=== PATIENT | female | born 1985 | race American Indian/Alaskan Native ===

== ENCOUNTER 2018-09-22 10:19 | Day surgery (SDC) | payer MEDICAID, OTHER ==
--- NOTE | 2018-09-22 08:33 | History and Physical Report ---
History of Present Illness Chief complaint: Right lower quadrant pain Suspected tubo-ovarian abscess Chronic constipation History of present illness: 33yo with chronic pelvic pain and 11cm right adnexal mass identified as an ovarian cyst on pelvic CT and ultrasound. She underwent surgery 11/2017 for laparoscopic salpingectomy and right ovarian cystectomy, however the mass persists and is causing 10/10 pain with constipation. Review of operative report from 11/2017 reveals normal bilateral ovaries, 10-12cm hydrosalpinx partially ruptured in the abdomen with irrigation and obliteration of the posterior cul de sac. Tumor markers for ovarian malignancy were negative. She presents today for diagnostic laparoscopy and right cystectomy vs oopherectomy. Today the patient denies chest pain or shortness of breath. She did complete bowel prep and has been NPO since midnight. 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 Social history: - Obstetrical History : 7 Para: 5 Medications and Allergies Allergies Allergy/AdvReac Type Severity Reaction Status Date / Time Penicillins Allergy Swelling Verified 07/17/15 14:01 Home Medications Medication Instructions Recorded Confirmed Last Taken Type Pnv95/Ferrous Fumarate/FA 1 tab PO DAILY 04/10/15 07/25/15 2 Days Ago History [ Vitamins] ~07/23/15 HYDROcodone/APAP 5-325 [Gibson 1 each PO Q6HR PRN #15 tablet 07/25/15 Unknown Rx 5-325 mg TAB] Active Meds: Active Medications Gentamicin Sulfate (Garamycin) 80 mg IV PREOP JUANITA; Protocol Clindamycin HCl (Cleocin 600 Mg/50 Ml) 600 mg in 50 mls @ 100 mls/hr IV PREOP NR; Protocol Lactated Ringer's (Lactated Ringers) 1,000 mls @ 125 mls/hr IV DIRECT JUANITA - Physical Exam Adnexa: right: mass (15 week size), tenderness Results Result Diagrams: 09/22/18 12:10 09/22/18 12:10 All other labs normal. Assessment and Plan - Patient Problems (1) Right lower quadrant abdominal pain Current Visit: No Status: Acute (2) Adnexal mass Current Visit: No Status: Acute Plan to address problem: 1. CA125 31 (within normal limits) 2. CT of abdomen and ultrasound reveals a 11.5cm right adnexal mass, ovarian in nature 3. IVF 4. Labs, SCDs, Urine test, Neff catheter 5. Antibiotics due to high likelihood of open procedure. 6. Patient to complete bowel prep pre-op at home. 7. Discussion with patient concerning high likelihood of conversion of case to exploratory laparatomy due to size of mass and possible adhesions. Proceed to diagnostic laparoscopy, possible exploratory laparotomy, excision of right adnexal mass (possible oopherectomy vs cystectomy). Risks including but not limited to bleeding, infection, injury to surrounding organs such as bladder, bowel, need for hysterectomy and/or conversion to exploratory laparotomy). All questions answered and informed consent signed. (3) Constipation Current Visit: No Status: Acute (4) PID (pelvic inflammatory disease) Current Visit: Yes Status: Acute Plan to address problem: Patient has completed a 2 week course of doxycycline. She will receive intra-op antibiotics. There is strong suspicious that persistent mass is a persistent tubo-ovarian abscess.
[~2018-09-22 10:19] MED LIST: CLEOCIN 600 MG/50 mL 600 MG/50 ML BAG IV NR; GENTAMICIN IV SCH; LACTATED RINGERS 1,000 ML IV SCH
[2018-09-22 12:30] LABS: Hematocrit 38.1 % (30.3-42.9); Hemoglobin 12.6 gm/dl (10.1-14.3); Mean Corpuscular HGB Conc 33 % (30-34); Mean Corpuscular Volume 78 fl (79-97); Platelet Count 262 K/mm3 (140-440); Red Blood Count 4.86 M/mm3 (3.65-5.03)
[2018-09-22 12:42] LABS: INR 0.92 (0.87-1.13); Partial Thromboplastin Time 25.1 Sec. (24.2-36.6)
[2018-09-22 12:45] LABS: Alanine Aminotransferase 15 units/L (7-56); Albumin 4.4 g/dL (3.9-5); BUN/Creatinine Ratio 17; Blood Urea Nitrogen 12 mg/dL (7-17); Calcium 9.5 mg/dL (8.4-10.2); Hemolysis Index 2
[2018-09-22] MEDS ORDERED: GENTAMICIN/NS 80 MG/100 ML 100 ML IV SCH (13:00)
[2018-09-22] MEDS ORDERED: XYLOCAINE 1%/ EPI 1:100,000 INFILTRATI ONE ×2 (13:03→13:08)
[2018-09-22] MEDS ORDERED: SUBLIMAZE ONE (13:04)
[2018-09-22] MEDS ORDERED: TRANSDERM-SCOP TD NR (13:04)
[2018-09-22] MEDS ORDERED: VERSED IV NR (13:04)
[2018-09-22] MEDS ORDERED: NEURONTIN PO NR (13:04)
[2018-09-22] MEDS ORDERED: ZEMURON IV ONE (13:05)
[2018-09-22] MEDS ORDERED: DIPRIVAN 10 MG/ML IV ONE (13:05)
[2018-09-22] MEDS ORDERED: XYLOCAINE MPF 2% ONE (13:06)
[2018-09-22] MEDS ORDERED: TRANSDERM-SCOP TD ONE (13:16)
[2018-09-22] MEDS ORDERED: VERSED ONE (13:16)
[2018-09-22] MEDS ORDERED: NEURONTIN ONE (13:16)
[2018-09-22] MEDS ORDERED: DILAUDID IV PRN (13:20)
--- NOTE | 2018-09-22 13:20 | Anesthesia Day of Surgery ---
Anesthesia Day of Surgery - Day of Surgery Patient Examined: Yes Patient H&P Reviewed: Yes Patient is NPO: Yes
--- NOTE | 2018-09-22 13:20 | Anesthesia Consultation ---
Anesthesia Consult and Med Hx Date of service: 09/22/18 - Airway Anesthetic Teeth Evaluation: Good (braces in place; no rubber bands) ROM Head & Neck: Adequate Mental/Hyoid Distance: Adequate Mallampati Class: Class II Intubation Access Assessment: Probably Good - Pulmonary Exam CTA: Yes - Cardiac Exam Cardiac Exam: RRR - Pre-Operative Health Status ASA Pre-Surgery Classification: ASA1 Proposed Anesthetic Plan: General - Pulmonary Hx Smoking: No Hx Asthma: No Hx Respiratory Symptoms: No - Cardiovascular System Hx Hypertension: No Hx Heart Attack/AMI: No - Central Nervous System Hx Seizures: No CVA: No - Gastrointestinal Hx Gastroesophageal Reflux Disease: Yes (Mild) - Endocrine Hx Renal Disease: No Hx Liver Disease: No Hx Insulin Dependent Diabetes: No Hx Thyroid Disease: No - Hematic Hx Anemia: Yes - Additional Comments Anesthesia Medical History Comments: Hx mild PONV. Completed bowel prep yesterday and reports nasuea/vomiting. Mild nausea today but no vomiting.
[2018-09-22] MEDS ORDERED: ZOFRAN ONE (14:36)
[2018-09-22] MEDS ORDERED: DECADRON ONE (14:36)
[2018-09-22] MEDS ORDERED: MARCAINE 0.25% INFILTRATI ONE ×2 (15:46→16:11)
[2018-09-22] MEDS ORDERED: ROBINUL ONE ×2 (15:54→15:55)
[2018-09-22] MEDS ORDERED: BLOXIVERZ ONE (15:54)
[2018-09-22] MEDS ORDERED: IBUPROFEN PO PRN (16:23)
[2018-09-22] MEDS ORDERED: PERCOCET 5/325 PO PRN (16:23)
--- NOTE | 2018-09-22 16:23 | Operative Report ---
Operative Report Operative Report: PREOP Diagnosis 1. Chronic right lower quadrant pelvic pain 2. History of pelvic inflammatory disease 3. Right ovarian cyst POSTOP Diagnosis 1. Chronic right lower quadrant pelvic pain 2. History of pelvic inflammatory disease 3. Hemorrhagic Right ovarian cyst Procedure 1. Diagnostic laparoscopy 2. Right ovarian cyst aspiration 3. Lysis of adhesions Findings 1. Right ovary and cyst adhesed to right pelvic side wall extending to left yris-rectal space 2. Hemoperitoneum with blood clots 3. Anteverted uterus sounded to 7.5cm s/p right salpingectomy 4. Normal left ovary with physiologic cysts 5. Purulent vaginal discharge EBL <50ml Surgeon: Dr. Sully Reyes Anesthesia: General INDICATION 33yo presents for elective diagnostic laparoscopy due to intractable abdominal pain, constipation and 11cm right ovarian cyst on ultrasound. She previously underwent a diagnostic laparoscopy 11/2017 for right salpingectomy for a hydrosalpinx. The risks including but not limited to bleeding, infection, injury to surrounding organs, need for exploratory laparotomy and possible need for hysterectomy were discussed and informed consent signed. She did receive pre-op gentamicin and clindamycin. PROCEDURE The patient was taken to operating room S12 in stable condition and adequate anesthesia was achieved. She prepped and draped in the sterile fashion and a time out was done. A jarvis catheter was placed. A sterile speculum was placed per vagina and cervix dilated using Ara dilators. A balloon uterine manipulator was placed. Attention was then turned to the abdomen where a supraumbilical incision was made using the previous scar. A Veress needle was placed intraabdominally at a 45 degree angle. The syringe drop test was used to confirm correct placement and the abdomen was insufflated with 2L CO2 gas. The Veress needle was then removed and the Versapoint 5mm trocar was placed into the abdominal cavity. The laparascope was placed and abdominal and pelvic findings were noted. Attention was turned to the right adnexa and inferior to the right ovary coarsing down the lateral pelvic side-wall was a ovarian cyst. The cyst wall was adherent to the pelvic side wall overlying the ureter and pelvic vasculature. Therefore the decision was made to create an opening the in the m edial cyst capsule and aspirate the contents. The contents were sent to pathology for evaluation. The cyst was noted to track down posteriorly into the retroperitoneum. Right adnexal lysis of adhesions was done using bipolar cautery. Cyst contents were sent to pathology. Rosio solution was applied through the laparoscope to aid in hemostasis. Hemostasis was achieved, the patient was taken out of trendelenburg. CO2 was expressed from the abdomen via trocar sites. The laterall trocars were removed under direct visualization. The supraumbilical subcutaneous layer was closed with 2-0 Vicryl. The 3 trocar sites were closed with 4-0 Vicryl and Dermabond. The uterine manipulator was removed. The patient was awakened from anesthesia and taken to the recovery room in stable condition.
[2018-09-22] MEDS ORDERED: ZOFRAN IV PRN (16:26)
--- NOTE | 2018-09-22 19:31 | Post Anesthesia Evaluation ---
- Post Anesthesia Evaluation Patient Participated: Yes Airway Patent: Yes Stable Respiratory Function: Yes Nausea/Vomiting: No Temp > 96.8F: Yes Pain Manageable: Yes Adequeate Hydration: Yes Anesthesia Complications: No Other Comments: Patient ok to be d/c'd home once voided, per surgeon orders.
[2018-09-22 20:07] VITALS: BP 117/66
== END 2018-09-22 20:00 | disposition home or self-care (01) ==
LOC: OR 10:19
PROVIDERS: ATTEND Obstetrics & Gynecology
DX: N83.201 Unspecified ovarian cyst, right side (principal); N85.4 Malposition of uterus; G89.29 Other chronic pain; K21.9 Gastro-esophageal reflux disease without esophagitis; D64.9 Anemia, unspecified; Z88.0 Allergy status to penicillin; Z98.51 Tubal ligation status; Z90.721 Acquired absence of ovaries, unilateral; Z98.890 Other specified postprocedural states
CPT/HCPCS: 36415; 49322; 80053; 81025; 85027; 85610; 85730; 86850; 86900; 86901; 87075; 87116; 88112; 88305; J1100; J1170; J1580; J2250; J2405; J2704; J2710; J3010; J7120

== ENCOUNTER 2019-02-02 06:10 | Inpatient (IN) | payer OTHER ==
[2019-02-01 10:01] LABS: Basophils % (Auto) 0.5 % (0.0-1.8); Eosinophils % (Auto) 0.8 % (0.0-4.3); Hematocrit 35.7 % (30.3-42.9); Hemoglobin 11.6 gm/dl (10.1-14.3); Lymphocytes # (Auto) 2.2 K/mm3 (1.2-5.4); Lymphocytes % (Auto) 33.9 % (13.4-35.0); Mean Corpuscular HGB Conc 32 % (30-34); Mean Corpuscular Volume 79 fl (79-97); Monocytes # (Auto) 0.4 K/mm3 (0.0-0.8); Monocytes % (Auto) 6.2 % (0.0-7.3); Platelet Count 197 K/mm3 (140-440); Red Blood Count 4.52 M/mm3 (3.65-5.03); Red Cell Distribution Width 15.2 % (13.2-15.2)
--- NOTE | 2019-02-01 10:18 | Anesthesia Consultation ---
Anesthesia Consult and Med Hx Date of service: 02/02/19 - Airway Anesthetic Teeth Evaluation: Good (Braces) - Pulmonary Hx Smoking: No Hx Asthma: No Hx Respiratory Symptoms: No COPD: No Hx Pneumonia: No - Cardiovascular System Hx Hypertension: No Hx Heart Attack/AMI: No - Central Nervous System Hx Seizures: No CVA: No Hx Psychiatric Problems: No - Gastrointestinal Hx Gastroesophageal Reflux Disease: Yes (Mild) - Endocrine Hx Renal Disease: No Hx End Stage Renal Disease: No Hx Liver Disease: No Hx Insulin Dependent Diabetes: No Hx Non-Insulin Dependent Diabetes: Yes ("PRE" Diabetes. A1c 5.8%) Hx Thyroid Disease: No Hx Hypothyroidism: No Hx Hyperthyroidism: Yes (Subclinical) - Hematic Hx Anemia: Yes Hx Sickle Cell Disease: No - Other Systems Hx Alcohol Use: No Hx Cancer: No Hx Obesity: No
[2019-02-01 10:27] LABS: BUN/Creatinine Ratio 19; Blood Urea Nitrogen 13 mg/dL (7-17); Calcium 8.7 mg/dL (8.4-10.2); Hemolysis Index 13
--- NOTE | 2019-02-01 22:39 | History and Physical Report ---
History of Present Illness Chief complaint: dysmenorrhea, chronic pelvic pain History of present illness: 33yo with dysmenorrhea and chronic pelvic pain that presents for definitive treatment with hysterectomy. She has a history of pelvic inflammatory disease s/p antibiotics and recurrent right ovarian cyst with laparoscopic drainage. She had has several ER visits for the pelvic pain and the pain is now refractory to pain medications. Today she declines any shortness of breath or chest pain. 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) Social history: , lives with family - Obstetrical History : 7 Number of Living Children: 5 Medications and Allergies Allergies Allergy/AdvReac Type Severity Reaction Status Date / Time Penicillins Allergy Swelling Verified 01/31/19 16:46 Home Medications Medication Instructions Recorded Confirmed Last Taken Type No Known Home Medications [No 01/31/19 01/31/19 Unknown History Reported Home Medications] Active Meds: Active Medications Acetaminophen (Tylenol) 650 mg PO PREOP NR Stop: 02/02/19 10:59 Celecoxib (Celebrex) 200 mg PO PREOP NR Stop: 02/02/19 10:59 Gabapentin (Neurontin) 300 mg PO PREOP NR Stop: 02/02/19 10:59 Lactated Ringer's (Lactated Ringers) 1,000 mls @ 125 mls/hr IV DIRECT JUANITA - Vital Signs Vital signs: Vital Signs Temp Pulse Resp BP Pulse Ox 98.3 F 62 18 109/73 100 02/01/19 09:30 02/01/19 09:30 02/01/19 09:30 02/01/19 09:30 02/01/19 09:30 Temp Pulse Resp BP Pulse Ox 98.3 F 62 18 109/73 100 02/01/19 09:30 02/01/19 09:30 02/01/19 09:30 02/01/19 09:30 02/01/19 09:30 - Physical Exam Cardiovascular: Regular rate Lungs: Positive: Clear to auscultation Abdomen: Positive: normal appearance, soft Genitourinary (Female): Positive: normal external genitalia Vulva: both: normal Uterus: Positive: normal size Extremities: Positive: normal Results Result Diagrams: 02/01/19 09:45 02/01/19 09:45 Abnormal lab results 02/01/19 Range/Units 09:45 MCH 26 L (28-32) pg All other labs normal. Assessment and Plan - Patient Problems (1) Dysmenorrhea Status: Acute Plan to address problem: 1. IVF 2. Labs: CBC, CMP, urine test 3. SCDs for DVT prophylaxis 4. Antibiotics -Gentamicin 5mg/kg -Clindamycin 900mg IV 1. Risks of hysterectomy including but not limited to bleeding, infection, injury to surrounding organs, no resolution of pelvic pain, need for blood transfusion, vasomotor/menopausal symptoms. risk of myocardial infarction, pulmonary emobilism and cardiovascular accident have been discussed and informed consent signed. 5. Proceed to laparoscopic-assisted vaginal hysterectomy, left salpingectomy and right oopherectomy. (2) Right ovarian cyst Status: Acute Plan to address problem: s/p right salpingectomy previous surgery (3) Chronic pelvic pain in female Status: Acute
[~2019-02-02 06:10] MED LIST changes: -CLEOCIN 600 MG/50 mL 600 MG/50 ML BAG IV NR; +CLEOCIN 900 MG/50 mL 900 MG/50 ML BAG IV NR; +GENTAMICIN 120 MG in NACL 0.9% 100 ML IV ONE; -GENTAMICIN IV SCH; +GENTAMICIN/NS 120MG/100ML 120 MG/100 ML BAG IV NR; -LACTATED RINGERS 1,000 ML IV SCH; +NEURONTIN PO NR; +TYLENOL PO NR
[2019-02-02] MEDS ORDERED: GENTAMICIN 120 MG in NACL 0.9% 100 ML IV ONE (07:00)
[2019-02-02] MEDS: LACTATED RINGERS 1,000 ML IV SCH ×2 (07:10→21:14)
[2019-02-02] MEDS ORDERED: ZEMURON IV ONE (07:16)
[2019-02-02] MEDS ORDERED: XYLOCAINE MPF 2% ONE (07:16)
[2019-02-02] MEDS ORDERED: SUBLIMAZE ONE (07:16)
[2019-02-02] MEDS ORDERED: DIPRIVAN 10 MG/ML IV ONE (07:17)
[2019-02-02] MEDS ORDERED: MARCAINE 0.25% INFILTRATI ONE ×2 (07:49→12:00)
[2019-02-02] MEDS ORDERED: VERSED ONE (07:56)
[2019-02-02] MEDS ORDERED: DILAUDID ONE (11:14)
[2019-02-02] MEDS ORDERED: NACL 0.9% IR ONE (12:00)
[2019-02-02] MEDS ORDERED: ROBINUL ONE (12:18)
[2019-02-02] MEDS ORDERED: ZOFRAN ONE (12:18)
[2019-02-02] MEDS ORDERED: BLOXIVERZ ONE (12:18)
[2019-02-02] MEDS ORDERED: TORADOL ONE (12:19)
--- NOTE | 2019-02-02 12:32 | Post Operative Note ---
Pre-op diagnosis: 1) Dysmenorrhea 2) Chronic pelvic pain 3)Recurrent right Ovarian cyst Post-op diagnosis: same Findings: 1) Anteverted 7cm uterus 2) R ovary adhered to pelvic side wall 3) History right salpinectectomy 4) Right round ligament previously removed 5) Left ovary with corpus luteum cyst 6) Extensive yris-rectal pelvic adhesions Anesthesia: GETA Surgeon: BISMARK TREVINO Noteman: FRANCISCO JAVIER JOHNS Estimated blood loss: other (200ml) Pathology: list (1) Ovary 2) Cervix 3) Right ovary 4) Left fallopian tube) Specimen disposition: to lab Condition: stable Disposition: PACU
[2019-02-02] MEDS ORDERED: NARCAN 0.4 MG/1 ML IV PRN (12:34)
[2019-02-02] MEDS ORDERED: REGLAN IV PRN (12:34)
[2019-02-02] MEDS ORDERED: ZOFRAN IV PRN ×2 (12:34→13:13)
[2019-02-02] MEDS ORDERED: DILAUDID IV PRN (13:13)
[2019-02-02] MEDS: PERCOCET 5/325 PO PRN (17:03)
[2019-02-02] MEDS: TORADOL IV SCH (21:14)
[2019-02-03] MEDS: PERCOCET 5/325 PO PRN (00:12)
[2019-02-03] MEDS: TORADOL IV SCH (03:56)
[2019-02-03] MEDS ORDERED: BENADRYL PO PRN (04:57)
[2019-02-03] MEDS ORDERED: NORCO 5/325 PO PRN (04:57)
[2019-02-03] MEDS ORDERED: SODIUM CHLORIDE FLUSH SYRINGE 10 ML IV NR (05:00)
[2019-02-03 06:02] LABS: Hematocrit 31.2 % (30.3-42.9); Hemoglobin 9.9 gm/dl (10.1-14.3)
[2019-02-03 06:30] LABS: BUN/Creatinine Ratio 13; Blood Urea Nitrogen 10 mg/dL (7-17); Calcium 8.6 mg/dL (8.4-10.2); Hemolysis Index 15
[2019-02-03] MEDS ORDERED: MORPHINE IV PRN ×2 (08:05→08:30)
[2019-02-03] MEDS ORDERED: PRENATAL VITAMIN PO SCH (10:00)
--- NOTE | 2019-02-03 10:16 | Progress Note ---
Assessment and Plan - Patient Problems (1) Right ovarian cyst Current Visit: No Status: Acute (2) S/P laparoscopic assisted vaginal hysterectomy (LAVH) Current Visit: Yes Status: Acute Plan to address problem: Continue routine post op care. IV pain meds until later, will switch to PO meds. Encourage ambulation. (3) Status post bilateral salpingectomy Current Visit: Yes Status: Acute (4) S/P oophorectomy Current Visit: Yes Status: Acute Subjective - Subjective Date of service: 02/03/19 Principal diagnosis: S/P LAVH, left oophorectomy, right salpingiectomy Interval history: Patient is a 33 year old who is S/P LAVH, POD#1. She denies any complaint except pain for which she had IV morphine this AM. She has been OOB to ambulate. She tolerated her breakfast well this AM. Objective - Vital Signs Latest vital signs: Vital Signs Temp Pulse Pulse Resp BP BP Pulse Ox 02/03/19 08:46 18 02/03/19 07:39 98.2 F 74 18 103/59 98 02/03/19 05:00 98.5 F 74 20 103/56 99 02/03/19 00:53 99.1 F 74 20 110/60 98 02/02/19 20:45 99.0 F 73 20 110/60 98 02/02/19 20:30 60 16 02/02/19 18:03 18 02/02/19 17:19 97.6 F 54 L 18 113/62 100 02/02/19 17:03 17 02/02/19 14:10 97.3 F L 54 L 16 115/67 100 02/02/19 14:00 65 15 118/75 100 02/02/19 13:47 15 02/02/19 13:45 97.4 F L 62 15 120/71 100 02/02/19 13:30 62 14 110/69 100 02/02/19 13:17 12 02/02/19 13:15 58 L 12 126/72 100 02/02/19 13:00 52 L 12 118/70 100 02/02/19 12:55 50 L 13 117/67 100 02/02/19 12:50 51 L 12 116/69 100 02/02/19 12:44 97.2 F L 56 L 12 119/70 100 Intake and Output 02/02/19 02/03/19 02/03/19 23:59 07:59 15:59 Intake Total 120 Output Total 1000 800 Balance -1000 -680 Intake: Oral 120 Output: Urine 1000 800 Indwelling Catheter 1000 800 Other: Total, Intake Amount 120 Total, Output Amount 1000 800 Voiding Method Indwelling Catheter - Exam Cardiovascular: Present: Normal S1, Normal S2 Lungs: Present: Clear to auscultation Vulva: both: normal Uterus: Present: other (absent) Extremities: Present: other (No calf TN, no Jeffrey's sign) Deep Tendon Reflex Grade: Normal +2 Incision: Present: other (Trocar sites dry and clean, mild TN.) - Labs Labs: Abnormal lab results 02/02/19 02/03/19 02/03/19 Range/Units 13:08 05:16 05:16 Hgb 9.9 L (10.1-14.3) gm/dl Glucose 110 H (65-100) mg/dL POC Glucose 137 H (70-105)
[2019-02-03] MEDS: IBUPROFEN PO SCH ×2 (12:55→17:56)
[2019-02-03] MEDS ORDERED: TORADOL IV ONE (13:00)
[2019-02-03 17:42] VITALS: BP 110/60
[2019-02-03] MEDS ORDERED: PERCOCET 5/325 PO ONE (19:04)
--- NOTE | 2019-02-03 19:09 | Discharge Summary ---
Providers - Providers Date of Admission: 02/02/19 06:10 Attending physician: BISMARK TREVINO Primary care physician: BOBBIN CLEANER Hospitalization Reason for admission: other (scheduled hysterectomy) Procedure: other (laparoscopic bilateral tubal ligation, left salpingectomy, right oopherectomy) Discharge diagnosis: other (chronic pelvic pain, dysmenorrhea, RLQ pain, hx pelvic inflammatory disease) Hospital course: ' 33yo with dysmenorrhea, chronic pelvic pain and recurrent right ovarian cyst underwent LAVH, LS, RO. She also had ureteral stent placement with urology. She was ambulating without difficulty, tolerating PO and pain well controlled on POD#1 and subsequently discharged home in stable condition. Condition at discharge: Stable Disposition: - TO HOME OR SELFCARE - Discharge Diagnoses (1) Dysmenorrhea Status: Acute (2) Right ovarian cyst Status: Acute (3) Chronic pelvic pain in female Status: Acute (4) Anemia due to acute blood loss Status: Acute Comment: Asymptomatic. Continue post-op iron. Plan - Discharge Medications Prescriptions: Ibuprofen 800 mg PO Q6H PRN 10 Days #30 tablet MDD 3200mg PRN Reason: Pain, Moderate (4-6) oxyCODONE /ACETAMINOPHEN [Percocet 5/325] 1 tab PO Q4HR PRN 14 Days #30 tab PRN Reason: Pain , Severe (7-10) - Provider Discharge Summary Additional instructions: [] Smoking cessation referral if applicable(refer to patient education folder for contact #) [] Refer to [facility] Booklet Call your doctor immediately for: * Fever > 100.5 * Heavy vaginal bleeding ( >1 pad per hour) * Severe persistent headache * Shortness of breath * Reddened, hot, painful area to leg or breast * Drainage or odor from incision. * Keep incision clean and dry at all times and follow doctor's instructions regarding bathing/showering - Follow up plan Follow up: PRIMARY CARE, [Primary Care Provider] - 7 Days
--- NOTE | 2019-02-03 19:11 | Operative Report ---
Operative Report Operative Report: DATE OF SURGERY 02/02/2019 Pre-op diagnosis: 1) Dysmenorrhea 2) Chronic pelvic pain, RLQ 3) Recurrent right Ovarian cyst 4) History of pelvic inflammatory disease Post-op diagnosis: 1) Dysmenorrhea 2) Chronic pelvic pain, RLQ 3) Recurrent right Ovarian cyst 4) History of pelvic inflammatory disease PROCEDURE: 1) Laparoscopic-assisted vaginal hysterectomy 2) Right oopherectomy 3) Left salpingectomy (Dr. Medina to dictate concurrent cystoscopy and bilateral stent placement ) FINDINGS: 1) Anteverted 7cm uterus 2) R ovary adhered to pelvic side wall 3) History right salpinectectomy 4) Right round ligament previously removed 5) Left ovary with corpus luteum cyst 6) Extensive yris-rectal pelvic adhesions Anesthesia: GETA Surgeon: BISMARK TREVINO Sausage Machine Operator: FRANCISCO JAVIER JOHNS Estimated blood loss: other (200ml) UOP 200ml (faint hematuria s/p ureteral stent removal) Pathology: (1) Ovary 2) Cervix 3) Right ovary 4) Left fallopian tube Specimen disposition: to lab Condition: stable Disposition: PACU 33yo presented for planned hysterectomy due to chronic pelvic pain and dysmenorrhea. She has tried medical treatment for dysmenorrhea with no resolution of symptoms. She has a history of recurrent right ovarian cyst, right adnexal adhesions and pelvic inflammatory disease. Due to history of PID, tubo- ovarian abscess and right adnexal adhesions causing repeat ER visits for intractable pelvic pain the decision was made to remove the right ovary as well to decrease the risk of recurrent disease. The risks including but not limited to bleeding, infection, injury to vessels, bladder and/or bowel, air embolism, menopausal symptoms, myocardial infection, stroke and DVT were discussed. Benefits and alternatives were discussed and informed consent signed. Due to the history of right adnexal pathology and adhesions, bilateral ureteral stents were placed prior to hysterectomy by urology to aid in identification of ureter during case. PROCEDURE: The patient was taken to OR [facility] in stable condition. She was placed on the bed in the supine position and adequate anesthesia was achieved. She wore SCDs for DVT prophylaxis. She was prepped and draped in the sterile fashion and a time out was done. She was re-positioned in the dorsal lithotomy position with Drew stirrups. A Neff Catheter was placed by urology at the time of ureteral stent placement. A sterile speculum was placed per vagina and a single toothed tenaculum was placed on the anterior lip of the cervix. The cervix was dilated using uterine dilators and sounded to 7cm. A 37mm V-care uterine manipulator was placed and secured to the cervix. Attention was then turned to the abdomen where a 0.5cm infraumbilical incision was made. A 5mm Applied Fios trocar was placed at the umbilicus under direct visualization and used to insufflate the abdomen with CO2 gas. A right and left lower quadrant 5mm incision was made and 5mm trocars placed under direct visualization. An intrabdominal survey was done with findings as above. The bilateral ureters were visualized and noted to peristalsis. The right ovary was noted to be adhered to the pelvic side wall. It was dissected from the pelvic side wall using Ethicon Bipolar sealer/divider. IP ligament was identified and cauterized and cut. The right ovary was freed and placed in the posterior cul de sac. Attention was then turned to left adnexa where left tube was identified and bipolar device used to perform salpingectomy. The round ligament was then ligated and the mesosalpinx and medial leaf of the broad ligament se parated down to the vesicouterine peritoneum. The right tube and round ligament were previously removed therefore the medial life of the broad ligament was dissected and the vesicouterine peritoneum was dissected from the lower uterine segment. The uterine arteries were then skeletonized and clamped, cut and ligated using bipolar cautery. The uterosacral ligaments were clamped, cauterized, cut. Once the bladder was adequately dissected from the lower uterine segment, the J-hook monopolar cautery was used to create the colpotomy. The uterus was then removed from the pelvis vaginally. The right ovary was identified and removed from the pelvic cavity as well. The vaginal cuff was then closed with 0-Vicryl and 2 running stitches and joined at the midline. The vaginal cuff was then visualized laparoscopically. Rosio solution was applied to aid in hemostasis. The abdominal pressure was lowered and patient taken out of Trendelenburg and no active bleeding was noted. The abdomen was freed of gas and the abdominal trocars were removed. All skin incisions were closed with 4-0 Vicryl and Dermabond Attention was then turned to the perineum. The uteral stents were removed. The urine was lightly blood tinged after removal but no fantasma blood. The procedure was ended. All counts were correct x 2. The patient was awakened from anesthesia in stable condition and transported to the PACU. I was present and scrubbed for the entire procedure.
--- NOTE | 2019-03-22 11:26 | Event Note ---
Date: 02/03/19 OP Dict Number [id number]
--- NOTE | 2019-03-22 11:41 | Operative Report ---
PREOPERATIVE DIAGNOSES: Dysmenorrhea, chronic pelvic pain, ovarian cyst, pelvic inflammatory disease with planned hysterectomy and oophorectomy. POSTOPERATIVE DIAGNOSES: Dysmenorrhea, chronic pelvic pain, ovarian cyst, pelvic inflammatory disease with planned hysterectomy and oophorectomy. PROCEDURE: Cystoscopy, bilateral open-ended stents placed. ESTIMATED BLOOD LOSS: Minimal. COMPLICATIONS: None. FINDINGS: No deviation easily passed. SURGEON: Bryce Arrington M.D. ANESTHESIA: General. SPECIMENS: None. CLINICAL INDICATIONS: We were consulted by BEAR KEEPER due to the patient's pathology concerns for severe adhesions and risk of ureteral injury. We were requested for ureteral stents placed before the procedure for anatomical localization during the hysterectomy; had antibiotics, SCDs. DESCRIPTION OF PROCEDURE: The patient was transferred to OR suite in supine position, anesthesia, dorsal lithotomy, prepped and draped in standard fashion. A 22-Bahamian scope passed. Pancystoscopy demonstrated no tumors or lesions or other abnormality. Left UO was cannulated with a 5-Bahamian whistle tip catheter. This was easily passed up the ureter and was easily passed greater than 20 cm up the ureter and this was kept in place. Next, a 5-Bahamian whistle tip was passed up the right ureter. This easily passed without resistance 20 cm up the ureter. Next, the scope was withdrawn. The Neff catheter placed, using suture we tied both open-ended stents separately and together around the catheter secured the position and then this was all secured. At this point, MASTER OF CEREMONIES began their procedure. JOB# [id number] ATS/NTS
== END 2019-02-03 20:45 | disposition home or self-care (01) | DRG 742 ==
LOC: 3A 06:10 → EDSTATUS 08:00 → OB 13:02
PROVIDERS: ADMIT Obstetrics & Gynecology; ATTEND Obstetrics & Gynecology
PROC: 0UT9FZZ Resection of Uterus, Via Natural or Artificial Opening With Percutaneous Endoscopic Assistance (ICD-10-PCS; principal; 2019-02-02)
PROC: 0UT6FZZ Resection of Left Fallopian Tube, Via Natural or Artificial Opening With Percutaneous Endoscopic Assistance (ICD-10-PCS; 2019-02-02)
PROC: 0UT0FZZ Resection of Right Ovary, Via Natural or Artificial Opening With Percutaneous Endoscopic Assistance (ICD-10-PCS; 2019-02-02)
PROC: 0DNP4ZZ Release Rectum, Percutaneous Endoscopic Approach (ICD-10-PCS; 2019-02-02)
DX: N83.201 Unspecified ovarian cyst, right side (principal); D62 Acute posthemorrhagic anemia; N94.4 Primary dysmenorrhea; K21.9 Gastro-esophageal reflux disease without esophagitis; E11.9 Type 2 diabetes mellitus without complications; E05.90 Thyrotoxicosis, unspecified without thyrotoxic crisis or storm; N94.6 Dysmenorrhea, unspecified; K66.0 Peritoneal adhesions (postprocedural) (postinfection); Z88.0 Allergy status to penicillin
CPT/HCPCS: 36415; 80048; 82962; 84703; 85014; 85018; 85025; 86850; 86900; 86901; 88305; 88307; G0378; C1758; J1170; J1580; J1885; J2250; J2270; J2405; J2704; J2710; J3010; J7120